=== PATIENT | male | born 1980 | race African-American/Black ===

== ENCOUNTER 2018-03-03 15:09 | Emergency (ER) | payer SELFPAY ==
[2018-03-03 15:30] VITALS: BMI 20.1
[2018-03-03] MEDS ORDERED: Sodium Chloride 0.9% 1,000 ML IV ONE (16:32)
[2018-03-03] MEDS ORDERED: Sodium Chloride 0.9% 1,000 ML ONE (16:53)
[2018-03-03 17:09] LABS: BASO % 0.7 % (0.0-2.0); HEMOGLOBIN 15.1 g/dL (12.0-18.0); LYMPH # 2.7 K/uL (1.0-4.3); MEAN CELL VOLUME 90.6 fL (80.0-94.0); MEAN CORPUSCULAR HEMOGLOBIN 31.6 pg (27.0-31.0); MEAN CORPUSCULAR HGB CONC 34.9 g/dL (33.0-37.0); MEAN PLATELET VOLUME 6.9 fL (7.2-11.7); MONO # 0.3 K/uL (0.0-0.8); MONO % 5.1 % (0.0-10.0); NEUT # 3.6 K/uL (1.8-7.0); NEUT % 54.2 % (50.0-75.0); RBC 4.79 Mil/uL (4.40-5.90); RED CELL DISTRIBUTION WIDTH 13.6 % (11.5-14.5); WHITE BLOOD COUNT 6.6 K/uL (4.8-10.8)
--- NOTE | 2018-03-03 17:14 | RAD ---
Chest x-ray single frontal view History: Shortness of breath. Comparison: None available. Findings: Mild venous congestion. Heart size within normal limits. Impression: Mild venous congestion.
[2018-03-03 17:17] LABS: SQUAMOUS EPITHIAL < 1 /hpf (0-5); URINE BILIRUBIN NEGATIVE (NEGATIVE); URINE BLOOD 1+ (NEGATIVE); URINE CLARITY Clear (Clear); URINE COLOR Yellow (YELLOW); URINE GLUCOSE (UA) NORMAL (Normal); URINE LEUKOCYTE ESTERASE NEG Leu/uL (Negative); URINE PROTEIN 2+ mg/dL (NEGATIVE); URINE UROBILINOGEN NORMAL mg/dL (0.2-1.0)
[2018-03-03 17:26] LABS: BARBITURATES, UR NEGATIVE (NEGATIVE); BENZODIAZEPINES, UR NEGATIVE (NEGATIVE); OPIATES, UR NEGATIVE (NEGATIVE); PHENCYCLIDINE, UR NEGATIVE (NEGATIVE)
[2018-03-03 17:32] LABS: ALB/GLOB RATIO 1.5 (1.0-2.1); ALBUMIN 4.7 g/dL (3.5-5.0); ALT/SGPT 63 U/L (21-72); AST/SGOT 155 U/L (17-59); BLOOD UREA NITROGEN 9 mg/dL (9-20); CALCIUM 8.4 mg/dl (8.6-10.4); GFR AFRICAN-AMERICAN > 60; GFR NON-AFRICAN AMERICAN > 60; LIPASE 207 U/L (23-300)
[2018-03-03 18:30] VITALS: TEMP 98
--- NOTE | 2018-03-03 19:48 | C.PDOC ---
Time Seen by Provider: 03/03/18 16:11 Chief Complaint (Nursing): Substance Abuse History Per: Patient Onset/Duration Of Symptoms: Days Current Symptoms Are (Timing): Still Present Suicide/Self Injury Attempted (Context): None Modifying Factor(s): Alcohol Severity: Moderate Associated Symptoms: denies: Suicidal Thoughts, Suicidal Plan Additional History Per: Prior Records Past Medical History Reviewed: Historical Data, Nursing Documentation, Vital Signs Vital Signs: Last Vital Signs Temp 98 F 03/03/18 18:30 Pulse 89 03/03/18 18:30 Resp 18 03/03/18 18:30 BP 145/76 03/03/18 18:30 Pulse Ox 98 03/03/18 18:30 - Medical History PMH: No Chronic Diseases Surgical History: No Surg Hx Family History: States: Unknown Family Hx - Social History Hx Alcohol Use: Yes Hx Substance Use: No - Immunization History Hx Tetanus Toxoid Vaccination: No Hx Influenza Vaccination: No Hx Pneumococcal Vaccination: No Review Of Systems Except As Marked, All Systems Reviewed And Found Negative. Constitutional: Negative for: Fever Cardiovascular: Negative for: Chest Pain Respiratory: Positive for: Shortness of Breath (?). Negative for: Hemoptysis Gastrointestinal: Positive for: Vomiting. Negative for: Abdominal Pain, Melena , Hematochezia, Hematemesis Genitourinary: Negative for: Dysuria Musculoskeletal: Positive for: Back Pain (lower). Negative for: Neck Pain, Leg Pain Skin: Negative for: Rash Neurological: Negative for: Weakness, Numbness, Seizures, Headache Psych: Negative for: Psychosis Physical Exam - Physical Exam Appears: Non-toxic, No Acute Distress, Other (AOB) Skin: Normal Color, Warm, Dry, No Rash Head: Atraumatic, Normacephalic Eye(s): bilateral: Normal Inspection, PERRL, EOMI Neck: Normal ROM, No Midline Cervical Tenderness, No Step Off Deformity, Supple Chest: Symmetrical, No Deformity Cardiovascular: Rhythm Regular Respiratory: Normal Breath Sounds, No Accessory Muscle Use Gastrointestinal/Abdominal: Soft, No Tenderness, No Distention Back: No CVA Tenderness, No Vertebral Tenderness, Paraspinal Tenderness (lumbar) Extremity: Normal ROM, No Pedal Edema, No Calf Tenderness Neurological/Psych: Oriented x3, Normal Motor, Normal Sensation ED Course And Treatment - Laboratory Results Result Diagrams: 03/03/18 17:01 03/03/18 17:01 Interpretation Of Abnormal: Elevated alcohol level. O2 Sat by Pulse Oximetry: 98 Pulse Ox Interpretation: Normal - Radiology CXR: Viewed By Me, Read By Radiologist CXR Interpretation: Yes: No Acute Disease - Other Rad LS spine x-rays X-Ray: Interpreted by Me, Viewed By Me Interpretation: No acute fx. Progress Note: Pt's family is here. Pt will be released in their custody. Reassessment Condition: Improved Progress - Interventions Interventions:: Observation, Intravenous fluid - Medications Administered Intravenous: Antiemetic, H-2 helen, NSAID - Data Reviewed Data Reviewed: Lab, Diagnostic imaging, Old records - Patient Status Patient status: Mostly improved - Continuity of Care Discussed patient case with:: Patient, Family-HIPPA compliant, ED Nurse - Patient Plan Patient Plan: Discharge, F/U with PCP Disposition Counseled Patient/Family Regarding: Studies Performed, Diagnosis, Need For Followup - Disposition Referrals: [facility] [Outside] Disposition: HOME/ ROUTINE Disposition Time: 19:48 Condition: IMPROVED Additional Instructions: Avoid alcohol. Follow up in the clinic for further evaluation and treatment. Return to the ER if you develop weakness, numbness, abdominal pain, bleeding, worsening of symptoms or if you have any other concerns. Instructions: Alcohol Abuse and Alcoholism (DC), Low Back Pain (DC) - Clinical Impression Clinical Impression: Alcohol abuse, Low back pain
[2018-03-03 20:03] VITALS: BP 160/78; PULSE 78; RESP 14; O2SAT 99
--- NOTE | 2018-03-04 15:32 | RAD ---
Lumbar spine three views History: Low back pain. Comparison: None available. Findings: Anterolisthesis of L4 on L5. Mild loss of height of the superior endplate height of the T11 and T12 vertebral bodies. Radiopaque densities at the lower pelvis may be external. Impression: Anterolisthesis of L4 on L5. Correlation with MRI may be helpful if clinically indicated.
== END 2018-03-03 20:03 | disposition home or self-care (01) ==
LOC: C.ER 15:09
DX: F10.10 Alcohol abuse, uncomplicated (principal); M54.5 Low back pain
CPT/HCPCS: 71045; 72100; 80053; 81001; 83690; 83735; 85025; 96374; 96375; 99285; G0480; J1885; J2765; J7030